=== PATIENT | female | born 1940 | race Caucasian/White ===

== ENCOUNTER → 2017-08-17 | Outpatient (CLI) | payer MEDICARE, BC ==
--- NOTE | 2017-08-17 12:08 | US ---
EXAMINATION TYPE: US venous doppler duplex LE DATE OF EXAM: 08/17/2017 11:30 AM COMPARISON: NONE CLINICAL HISTORY: R79.9 Abnormal finding of blood chemistry. SIDE PERFORMED: Bilateral TECHNIQUE: The lower extremity deep venous system is examined utilizing real time linear array sonog michele with graded compression, doppler sonography and color-flow sonography. VESSELS IMAGED: External Iliac Vein (EIV) Common Femoral Vein Deep Femoral Vein Greater Saphenous Vein * Femoral Vein Popliteal Vein Small Saphenous Vein * Proximal Calf Veins (* superficial vessels) Right Leg: Appears negative for DVT Left Leg: Appears negative for DVT Grayscale, color doppler, spectral doppler imaging performed of the deep veins of the lower extremiti es. There is normal flow, compressibility, vascular waveforms. IMPRESSION: No ultrasound evidence for acute DVT in either lower extremity.
== END | disposition home or self-care (01) ==
LOC: RADUSMAIN 10:20
PROVIDERS: ATTEND Family Medicine
DX: I82.409 Acute embolism and thrombosis of unspecified deep veins of unspecified lower extremity (principal); R79.9 Abnormal finding of blood chemistry, unspecified
CPT/HCPCS: 93970

== ENCOUNTER → 2017-08-18 | Outpatient (CLI) | payer MEDICARE, BC ==
--- NOTE | 2017-08-18 10:03 | CT ---
EXAMINATION TYPE: CT brain wo con DATE OF EXAM: 08/18/2017 COMPARISON: 12-29-15 HISTORY: Patient complains of blurry vision. CT DLP: 1022 mGycm. Automated Exposure Control for Dose Reduction was Utilized. TECHNIQUE: CT scan of the head is performed without contrast. FINDINGS: There is no acute intracranial hemorrhage or midline shift identified. There is diffuse v entricular and sulcal prominence consistent with diffuse age-related cerebral atrophy. Corresponding the there is thinning of the corpus callosum. There is low-attenuation in the periventricular white m atter consistent with chronic small vessel ischemic change. The globes are intact and the visualized sinuses are clear. Dystrophic calcification is seen within the left basal ganglia. Atherosclerosis is seen of the intracranial vasculature. IMPRESSION: 1. No acute intracranial hemorrhage, mass effect, or midline shift is seen. 2. Generalized volume loss compatible with age-related atrophy. 3. Patchy areas of nonspecific white matter change, likely sequela of chronic microangiopathy.
--- NOTE | 2017-08-18 18:51 | CT ---
EXAMINATION TYPE: CT ChestAbdPelvis wo con DATE OF EXAM: 08/18/2017 COMPARISON: Prior chest CT. HISTORY: Patient complains of right side swollen ankle and left side swollen wrist. History of breast cancer. CT DLP: 2008 mGycm. Automated Exposure Control for Dose Reduction was Utilized. TECHNIQUE: CT scan of the thorax, abdomen and pelvis is performed without IV contrast. FINDINGS: LUNGS: There is a new large loculated left pleural effusion and associated areas of subsegmental atel ectasis. Complete left lower lobe collapse is seen secondary to mass effect from the pleural effusion with slight rightward mediastinal shift. Left upper lobe subsolid 5 mm pulmonary nodule is present i n the left upper lobe on series 4 image 30 as well as punctate 2 mm pulmonary nodule on image 28 and 3 mm nodule in the apex on image 19 subpleural 3 mm nodule is seen on the right on image 19 as well a s multiple 2 to 3 mm pulmonary nodules on image 35, image 37, and image 47. Additionally 5 mm pulmona ry nodule is seen in the right middle lobe on series 4 image 40 and 4 mm pulmonary nodule seen at the right lung base on image 45. 2 mm pulmonary nodule at the right lung base on image 45. MEDIASTINUM: Large soft tissue mass is centered around the sternum and anterior first and second ribs . Large venous varicosities extend to the soft tissue mass. The soft tissue masses multilobulated, br eaks through fascial planes, discrete osseous destruction, and extends into the superior mediastinum. This measures at least 12.3 x 5.5 cm in transverse by anterior posterior dimension and 8.6 cm in power crane operator niocaudal dimension. Of note this appears to spare the left subclavian vein, possibly coursing just a marlys the left subclavian vein although thrombus and/or occlusion remain a possibility giving the supe rior mediastinal varicosities. Prior lymph node dissection is seen in the axilla and surgical clips w ithin the posterior depth central left breast abutting the chest wall as well as upper outer quadrant . Skin thickening of the left chest wall is seen as well as soft tissue mass measuring 2.8 x 1.2 cm a butting the chest wall. There is central thinning of the pectoralis musculature with peripheral thick ening and left upper extremity skin thickening and edema noted which may represent sequela of lymphed hector or vascular occlusion and myositis. Left humeral arthroplasty is noted creating spray artifact. Left supraclavicular adenopathy measures 1.7 cm in short axis and 1.6 cm in short axis. Diffuse moder ate body wall edema and skin thickening are present. Moderate three-vessel coronary artery calcifications are present. Lingular and left upper lobe segmen mio atelectasis is seen. Prevascular adenopathy is present, however no enlarged pretracheal or subcar inal lymph nodes are seen. Evaluation for hilar adenopathy is limited due to lack of intravenous cont rast. LIVER/GB: Cholecystectomy clips reside within the gallbladder fossa. Liver is unremarkable. PANCREAS: Diffuse pancreatic atrophy without ductal dilatation. SPLEEN: 5 mm hypoattenuating lesion projects from the posterior lateral aspect of the spleen, too sma ll to accurately characterize. ADRENALS: No significant abnormality is seen. KIDNEYS: No significant abnormality is seen. BOWEL: Numerous sigmoid diverticula are present without pericolonic fat stranding. Bowel is largely d ecompressed. Sigmoid colon is redundant. Partial intrathoracic stomach/large hiatal hernia is identi fied with surgical sutures at the gastroesophageal junction. Descending duodenal diverticulum is inci dentally noted. LYMPH NODES: Solitary prominent left superficial inguinal lymph node measures 8 mm in short axis and is abnormally rounded in morphology. OSSEOUS STRUCTURES: Osteolysis of the sternal manubrium and body are seen as the destructive left estee st wall mass invades the osseous structures. Similar changes are seen of the anterior and lateral mar gins of the left first and second ribs and anterior margins of the left third and fourth ribs. The re maining ribs appear unaffected. Similar involvement in appearance of the mid and proximal left clavic le. Lytic lesion is present of the T6 vertebral body, highly suspicious for metastasis. Multilevel degene rative disc disease is seen of the thoracolumbar and lumbosacral spine most pronounced at L2-L3 with severe endplate sclerosis, intervertebral disc space narrowing, facet arthropathy and marginal osteop hytes. OTHER: There is diastases recti and surgical neeru from ventral hernia repair and mesh placement. C ircumferential moderate atherosclerosis is seen of the abdominal aorta and its branches. IMPRESSION: 1. Large complex left anterior chest wall mass invading the mediastinum with concern for impression o n the left subclavian vein and left upper extremity as well as left chest wall edema. There is osseou s destruction of the first through fourth left ribs, sternal manubrium, and sternal body with extensi on anteriorly into the subcutaneous soft tissues of the chest wall and associated supraclavicular and surrounding adenopathy. Skin thickening of the chest wall and prior axillary dissection may represen t sequela of radiation. Given this diagnostic considerations are for recurrent metastatic breast canc er, secondary radiation induced sarcoma, and less likely aggressive thymoma. Definitive diagnosis wit h tissue sampling is recommended. 2. Lytic lesion of the T6 vertebral body highly suspicious for metastasis. 3. Large left loculated pleural effusion with associated left lower lobar and left upper lung segment al as well as lingular segmental atelectasis. 4. Numerous pulmonary nodules that should be considered metastasis until proven otherwise. 5. Multiple incidental findings as described above. A Merrick message has been communicated to Torres Cahn DO via the [employer] system on 08/18/2017 6:48 PM, Message ID [id number].
== END | disposition home or self-care (01) ==
LOC: RADCTMAIN 07:56
PROVIDERS: ATTEND Family Medicine
DX: R90.82 White matter disease, unspecified (principal); R91.8 Other nonspecific abnormal finding of lung field; J90 Pleural effusion, not elsewhere classified; J98.11 Atelectasis
CPT/HCPCS: 70450; 71250; 74176

== ENCOUNTER 2017-08-26 08:28 | Day surgery (SDC) | payer MEDICARE, BC ==
--- NOTE | 2017-08-26 09:49 | US ---
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 Swelling in left arm, patient is already on thinners SIDE PERFORMED: Left Grayscale, color doppler, spectral doppler imaging performed of the deep veins of the upper extremity . There is normal flow, compressability and vascular waveforms. Left Arm: Appears negative for DVT abnormal enlarged lymph nodes versus mass seen at infraclavicular region and supraclavicular IMPRESSION: No evidence for DVT at this time.
[2017-08-26 10:08] LABS: Mean Platelet Volume 7.4
[2017-08-26 10:14] VITALS: RESP 14; TEMP 97.9
[2017-08-26 10:22] LABS: Blood Urea Nitrogen 14 mg/dL (7-17); Non-African American GFR(MDRD) 56 (>60 ml/min/1.73 sqM)
[2017-08-26 10:25] LABS: Prothrombin Time 10.2 sec (9.0-12.0)
[2017-08-26 10:51] VITALS: PULSE 61
[2017-08-26 11:06] VITALS: BP 172/68
--- NOTE | 2017-08-26 11:25 | US ---
Ultrasound-guided therapeutic and diagnostic thoracentesis DATE OF EXAM: 08/26/2017 CLINICAL HISTORY: Left pleural effusion The procedure was discussed with the patient. The risks, complications, benefits, and alternatives we re discussed and any questions were answered. Informed consent was obtained. The patient was placed supine on the ultrasound table and prepped and draped in the usual sterile fas hion. All elements of maximal barrier and sterile technique were utilized. Under ultrasound guidance, access into the pleural space was obtained, via the thoracentesis catheter system and direct ultrasound guidance. Ap proximately 1 liters of serous fluid was removed. The patient was stable throughout the procedure and remained stable upon discharge from Department of Radiology. IMPRESSION: 1. Successful therapeutic and diagnostic thoracentesis under ultrasound guidance.
--- NOTE | 2017-08-26 11:45 | XR ---
EXAMINATION TYPE: XR chest 1V DATE OF EXAM: 08/26/2017 COMPARISON: 12/29/2015 HISTORY: Was thoracentesis TECHNIQUE: Single frontal view of the chest is obtained. FINDINGS: Large area of consolidation pleural effusion on the left. Chronic rib deformity is postsur gical change. Postoperative change left shoulder. No sizable pneumothorax. Tiny right pleural effusion seen. IMPRESSION: 1. No pneumothorax post procedural. Sizable residual pleural effusion or consolidation noted.
--- NOTE | 2017-08-26 12:00 | CT ---
EXAMINATION TYPE: CT brain wo/w con DATE OF EXAM: 08/26/2017 COMPARISON: 08/18/2017 HISTORY: Mediastinum cancer CT DLP: 2208mGycm CONTRAST: CT scan of the head is performed without and with IV Contrast, patient injected with 100 ml mL of Vis ipaque 320. Unenhanced followed by contrast enhanced CT of the brain is submitted for evaluation. The ventricles are midline. There is no evidence for intracranial hemorrhage or extra-axial collection. No mass e ffects are identified. Visualized bony calvarium is intact. Contrast is administered and no enhanci ng lesions are detected. No pathologic enhancement is identified. If symptoms persist consider MRI. IMPRESSION: No enhancing lesion identified.
[2017-08-26 14:48] LABS: RBC, Body Fluid 1525 /uL
[2017-08-26 14:50] LABS: Body Fluid Comment Few Mesothelial
[2017-08-26 20:15] LABS: LDH, Body Fluid Source Pleural Fluid; T. Protein, Body Fluid Source Pleural Fluid; Total Protein, Body Fluid 2300 mg/dL
== END 2017-08-26 11:49 | disposition home or self-care (01) ==
LOC: RADPROMAIN 08:28
PROVIDERS: ATTEND Internal Medicine Hematology & Oncology
DX: C38.3 Malignant neoplasm of mediastinum, part unspecified (principal); J91.8 Pleural effusion in other conditions classified elsewhere; Z88.5 Allergy status to narcotic agent; M79.89 Other specified soft tissue disorders; Z79.01 Long term (current) use of anticoagulants
CPT/HCPCS: 88108; 88305; 89050; 82565; 84520; 85049; 85610; 88342; 88341; 87070; 87205; 87075; 83615; 84157; 71010; 32555; 93971; 70470; Q9967

== ENCOUNTER 2017-10-02 14:20 | Emergency (ER) | payer MEDICARE, BC ==
--- NOTE | 2017-10-02 15:09 | ED ---
General Adult HPI - General Chief complaint: Extremity Problem,Nontraumatic Stated complaint: FACIAL SWELLING LEFT SIDE, NAUSEA, WEAKNESS Time Seen by Provider: 10/02/17 14:25 Source: EMS, RN notes reviewed Mode of arrival: EMS Limitations: no limitations - History of Present Illness Initial comments: This is a 77-year-old female presents to the emergency department with a past medical history significant for breast cancer and recently she was just diagnosed with a recurrence with a mediastinal mass. Patient has been having some left arm swelling for about 6 weeks and she believes lately it has gotten a little worse. Dr. Knight her oncologist wants us to check her out for an upper extremity blood clot. Patient also this morning woke up with periorbital edema on the left only. Patient denies any pain patient denies any loss of function patient denies any numbness patient denies any headache patient denies any visual disturbance. Patient denies any recent fever chills or cough. Patient denies any chest pain difficult breathing shortness of breath. - Related Data Home Medications Medication Instructions Recorded Confirmed Atenolol [Tenormin] 50 mg PO BID 01/16/15 10/02/17 Levothyroxine Sodium [Synthroid] 137 mcg PO DAILY 01/16/15 10/02/17 Pravastatin Sodium [Pravachol] 40 mg PO HS 01/16/15 10/02/17 Losartan Potassium [Cozaar] 100 mg PO DAILY 12/29/15 10/02/17 Letrozole [Femara] 2.5 mg PO DAILY@1200 10/02/17 10/02/17 Ribociclib Succinate [Kisqali] 600 mg PO DAILY@1200 10/02/17 10/02/17 amLODIPine [Norvasc] 5 mg PO HS 10/02/17 10/02/17 Previous Rx's Medication Instructions Recorded Apixaban [Eliquis] 2.5 mg PO BID #60 tablet 12/31/15 Allergies Allergy/AdvReac Type Severity Reaction Status Date / Time propoxyphene napsylate AdvReac Rash/Hives Verified 10/02/17 14:54 [From Arsh] Review of Systems ROS Statement: Those systems with pertinent positive or pertinent negative responses have been documented in the HPI. ROS Other: All systems not noted in ROS Statement are negative. Past Medical History Past Medical History: Atrial Fibrillation, Cancer, GERD/Reflux, GI Bleed, Hyperlipidemia, Hypertension, Osteoarthritis (OA), Thyroid Disorder Additional Past Medical History / Comment(s): hypothyroid, anemia, stroke age 45 - sl rt arm weakness, sinus problems, uti's, diverticulosis History of Any Multi-Drug Resistant Organisms: None Reported Past Surgical History: Bowel Resection, Cholecystectomy, Hernia Repair, Orthopedic Surgery, Tubal Ligation Additional Past Surgical History / Comment(s): bilateral mastectomy, colonoscopy /egd, colon resection for diverticulitis, 1/3 stomach removed d/r bleeding ulcer 2006, cystoscopy with retrograde ureterogram. stent placed rt kidney 2007 d/t hydronephrosis from compession of ureter. 12/2015 left humerus fracture with humerus head replacement at [facility]. Past Anesthesia/Blood Transfusion Reactions: No Reported Reaction, Motion Sickness Additional Past Anesthesia/Blood Transfusion Reaction / Comment(s): CLAUSTROPHOBIA Past Psychological History: Anxiety Smoking Status: Former smoker Past Alcohol Use History: Occasional Past Drug Use History: None Reported - Past Family History Brother(s) Family Medical History: No Reported History Sister(s) Family Medical History: No Reported History Son(s) Family Medical History: No Reported History Mother Family Medical History: Cancer, Myocardial Infarction ([place]) Additional Family Medical History / Comment(s): breast cancer Father Family Medical History: Unable to Obtain General Exam - General Exam Comments Initial Comments: GENERAL: Patient is well-developed and well-nourished. Patient is nontoxic and well- hydrated and is in no acute distress. ENT: Neck is soft and supple. No significant lymphadenopathy is noted. Oropharynx is clear. Moist mucous membranes. Neck has full range of motion without eliciting any pain. EYES: The sclera were anicteric and conjunctiva were pink and moist. Extraocular movements were intact and pupils were equal round and reactive to light. Patient has. Orbital edema on the left PULMONARY: Patient has hyper acoustic sounds on the left patient states she has had fluid there in the past so that doesn't surprise her.. CARDIOVASCULAR: There is a regular rate and rhythm without any murmurs gallops or rubs. ABDOMEN: Soft and nontender with normal bowel sounds. SKIN: Skin is clear with no lesions or rashes and otherwise unremarkable. NEUROLOGIC: Patient is alert and oriented x3. Cranial nerves II through XII are grossly intact. Motor and sensory are also intact. Normal speech, volume and content. Symmetrical smile. MUSCULOSKELETAL: Normal extremities with adequate strength and full range of motion. Patient has significant edema of the left arm LYMPHATICS: No significant lymphadenopathy is noted PSYCHIATRIC: Normal psychiatric evaluation. Normal interpersonal interactions appears functionally intact in deals appropriately with others. No signs of depression. No signs of anxiety. Limitations: no limitations Course Vital Signs 10/02/17 10/02/17 14:23 20:09 Temperature 98.2 F 98.3 F Pulse Rate 56 L 61 Respiratory 18 19 Rate Blood Pressure 140/63 133/62 O2 Sat by Pulse 94 L 97 Oximetry Medical Decision Making - Medical Decision Making Ultrasound showed no DVT. CT of the orbit showed no clot or masses. I spoke with Dr. Johnson on 3 occasions about this patient he agreed to follow up the patient as an outpatient. I spoke with the patient and the family member and they were in agreement with following up. Patient is in no distress at this time. - Lab Data Result diagrams: 10/02/17 17:01 10/02/17 17:01 Lab Results 10/02/17 10/02/17 Range/Units 17:01 17:01 WBC 3.4 L (3.8-10.6) k/uL RBC 3.70 L (3.80-5.40) m/uL Hgb 12.1 (11.4-16.0) gm/dL Hct 38.8 (34.0-46.0) % MCV 104.8 H (80.0-100.0) fL MCH 32.6 (25.0-35.0) pg MCHC 31.1 (31.0-37.0) g/dL RDW 14.4 (11.5-15.5) % Plt Count 217 (150-450) k/uL Neutrophils % 87 % Lymphocytes % 8 % Monocytes % 3 % Eosinophils % 0 % Basophils % 0 % Neutrophils # 3.0 (1.3-7.7) k/uL Lymphocytes # 0.3 L (1.0-4.8) k/uL Monocytes # 0.1 (0-1.0) k/uL Eosinophils # 0.0 (0-0.7) k/uL Basophils # 0.0 (0-0.2) k/uL Macrocytosis Moderate Sodium 136 L (137-145) mmol/L Potassium 4.4 (3.5-5.1) mmol/L Chloride 98 (98-107) mmol/L Carbon Dioxide 35 H (22-30) mmol/L Anion Gap 3 mmol/L BUN 17 (7-17) mg/dL Creatinine 1.12 H (0.52-1.04) mg/dL Est GFR (MDRD) Af Amer 57 (>60 ml/min/1.73 sqM) Est GFR (MDRD) Non-Af 47 (>60 ml/min/1.73 sqM) Glucose 95 (74-99) mg/dL Calcium 8.3 L (8.4-10.2) mg/dL Total Bilirubin 0.6 (0.2-1.3) mg/dL AST 42 H (14-36) U/L ALT 33 (9-52) U/L Alkaline Phosphatase 92 (38-126) U/L Total Protein 5.1 L (6.3-8.2) g/dL Albumin 2.3 L (3.5-5.0) g/dL Disposition Clinical Impression: Periorbital edema Disposition: HOME SELF-CARE Condition: Good Instructions: Edema (ED) Additional Instructions: Patient should follow-up with Dr. Knight Referrals: Torres Chan DO [Primary Care Provider] - 1-2 days Time of Disposition: 20:19
--- NOTE | 2017-10-02 16:20 | US ---
EXAMINATION TYPE: US venous doppler duplex UE LT DATE OF EXAM: 10/02/2017 COMPARISON: US CLINICAL HISTORY: Pain. arm swelling, left eye swelling SIDE PERFORMED: left Patient has known large subclavian mass compressing vessels. Left Arm: Negative for DVT as visualized, there is extensive soft tissue swelling, unable to see radi al or ulnar veins due to edema. IMPRESSION: 1. Deep venous thrombosis is not demonstrated at this time. 2. Soft tissue edema on limiting evaluation of the distal radial ulnar veins. 3. Subclavian region mass, patient has known history.
[2017-10-02] MEDS ORDERED: RX INFO: IV CONTRAST WAS GIVEN 1 EACH MISC MISCELLANE PRN (16:49)
[2017-10-02 17:41] LABS: Calcium 8.3 mg/dL (8.4-10.2); Potassium 4.4 mmol/L (3.5-5.1); Total Bilirubin 0.6 mg/dL (0.2-1.3); Total Protein 5.1 g/dL (6.3-8.2)
[2017-10-02] MEDS ORDERED: SODIUM CHLORIDE 0.9% 500 ML IV ONE ×2 (18:00)
[2017-10-02 18:04] LABS: Basophils % (A) 0 %; CH 33.6; CHCM 32.2; Eosinophils % (A) 0 %; HCT 38.8 % (34.0-46.0); HDW 2.41; HGB 12.1 gm/dL (11.4-16.0); Luc # (Auto) 0.06; Luc % (Auto) 2; Lymphocytes # (A) 0.3 k/uL (1.0-4.8); Lymphocytes % (A) 8 %; MCH 32.6 pg (25.0-35.0); MCHC 31.1 g/dL (31.0-37.0); MCV 104.8 fL (80.0-100.0); Macrocytosis Moderate; Mean Platelet Volume 7.5; Monocytes # (A) 0.1 k/uL (0-1.0); Monocytes % (A) 3 %; Neutrophils % (A) 87 %; RDW 14.4 % (11.5-15.5); WBC 3.4 k/uL (3.8-10.6); WBC (Perox) 3.18
[2017-10-02] MEDS ORDERED: ONDANSETRON 4 MG/2 ML VIAL IVP STA (18:04)
--- NOTE | 2017-10-02 19:51 | CT ---
EXAMINATION TYPE: CT orbits wo/w con DATE OF EXAM: 10/02/2017 COMPARISON: NONE HISTORY: Left sided eye swelling today. CT DLP: 808 mGycm Automated exposure control for dose reduction was used. CONTRAST: CT scan of the orbits is performed with IV Contrast, patient injected with 80 mL of Visipaque 320. FINDINGS: Mild soft tissue swelling is over the superior soft tissues of the left orbit. No post septal inflamm atory changes evident. Lacrimal gland regions appear normal. This extends laterally towards the great er wing of the sphenoid subcutaneous tissues. Multiple soft tissues have a normal appearance. No intraconal or extraconal fat abnormality is evident. Extraocular muscles as visualized appear norm al. Some mild soft tissue swelling over the left supraorbital region appears to be present. Following the intravenous administration of contrast suspicious enhancement is not identified. Note i s made that the left superior ophthalmic vein appears to be a greater caliber than typically identifi ed and greater than on the right side. This does appear contrast-filled. IMPRESSION: 1. Findings suggestive for cellulitis left periorbital region. 2. Note is made of prominence of the superior ophthalmic vein on the left compared to the right.
[2017-10-02 20:11] VITALS: BP 133/62; PULSE 61; RESP 19; TEMP 98.3
== END 2017-10-02 20:31 | disposition home or self-care (01) ==
LOC: EC 14:20
DX: H05.222 Edema of left orbit (principal); E78.5 Hyperlipidemia, unspecified; I10 Essential (primary) hypertension; E03.9 Hypothyroidism, unspecified; Z85.3 Personal history of malignant neoplasm of breast; Z87.891 Personal history of nicotine dependence; Z88.5 Allergy status to narcotic agent; Z79.899 Other long term (current) drug therapy
CPT/HCPCS: 99284; 96374; 96361 ×2; 36415; 80053; 85025; 93971; 70482; Q9967; J2405